=== PATIENT | male | born 1980 | race Caucasian/White ===

== ENCOUNTER → 2023-09-22 | Emergency (ER) | payer SELFPAY ==
[~2023-09-22] MED LIST: ASPIRIN 81 MG CHEWABLE TABLET ONE; METOPROLOL XL 50 MG TAB PO ONE; NA CHLORIDE 0.9% 1,000 ML ONE
[2023-09-22 14:47] LABS: Absolute Lymphocytes (CBC) 2.2 K/uL (0.7-4.9); Hematocrit 40.8 % (39.6-49.0); Lymphocytes % 30.4 % (15.3-44.8); MCV 91.7 fL (80-100); MPV 8.3 fL (7.6-11.3); Platelets 205 thou/uL (152-406); RBC Red Blood Cell Count 4.45 M/uL (4.33-5.43)
[2023-09-22 14:52] LABS: Protime INR 1.04
[2023-09-22 15:30] LABS: ALT/SGPT 40 U/L (16-61); AST/SGOT 12 U/L (15-37); Albumin 3.5 g/dL (3.4-5.0); Alkaline Phosphatase 78 U/L (45-117); BUN Blood Urea Nitrogen 12 mg/dL (7-18); Bicarbonate 27 mEq/L (21-32); Bilirubin Direct 0.2 mg/dL (0-0.2); Bilirubin Indirect, Calculated 0.4 mg/dL (0.2-0.8); Bilirubin Total 0.6 mg/dL (0.2-1.0); Glomerular Filtration Rate 82 ml/min (=/>90); Glucose Level 130 mg/dL (74-106); Lipase 29 U/L (13-75); Magnesium 2.1 mg/dL (1.6-2.4); Potassium 3.9 mEq/L (3.5-5.1); Protein, Total 7.8 g/dL (6.4-8.2); Sodium Level 134 mEq/L (136-145)
[2023-09-22 15:32] LABS: NT PRO-BNP < 5 pg/mL (<125); Troponin High Sensitivity < 3.0 pg/mL (<58.9)
[2023-09-22 15:51] LABS: Specific Gravity 1.013 (1.005-1.030); Urine Bacteria None Seen /HPF (<20); Urine Bilirubin NEGATIVE (Negative); Urine Blood Negative (Negative); Urine Clarity Turbid (Clear); Urine Color Light-Yellow (Yellow); Urine Glucose NEGATIVE (Negative); Urine Mucus Slight /HPF (None Seen); Urine Protein NEGATIVE (Negative); Urine RBC <5 /HPF (None Seen); Urine Urobilinogen Normal (Normal); Urine pH 6.5 (5.0-7.0)
--- NOTE | 2023-09-22 15:51 | RAD REPORT ---
EXAM DESCRIPTION: Kandace Single View09/22/2023 3:14 pm CLINICAL HISTORY: Chest pain COMPARISON: none FINDINGS: The lungs appear clear of acute infiltrate. The heart is normal size IMPRESSION: No acute abnormalities displayed
--- NOTE | 2023-09-22 17:13 | EDPHYS ---
Physician Documentation [facility] Name: Maximo Hernandez Age: 43 yrs Sex: Male : 1980 Arrival Date: 09/22/2023 Time: 14:26 Bed 19 Private MD: ED Physician Enoch Fernandez HPI: 09/22 14:57 This 43 yrs old Male presents to ER via EMS with complaints of HTN , LEFT ARM johnathan PAIN. 14:57 The patient or guardian reports chest pain that is located primarily in the left johnathan clavicle. Onset: just prior to arrival. The patient presents with a history of heart skipping beats. Context: The symptoms occur with light activity. Onset: The symptoms/episode began/occurred just prior to arrival. Modifying factors: The symptoms are aggravated by nothing. The symptoms are alleviated by nothing. The chest pain is described as aching. Historical: - Allergies: 14:32 No Known Allergies; rs5 - PMHx: 14:32 Hypercholesterolemia; Hypertensive disorder; rs5 - PSHx: 14:32 Cholecystectomy; rs5 - Immunization history:: Adult Immunizations up to date. - Social history:: Smoking status: Patient denies any tobacco usage or history of. - Family history:: not pertinent. ROS: 14:57 Constitutional: Negative for fever, chills, and weight loss, Eyes: Negative for injury, johnathan pain, redness, and discharge, ENT: Negative for injury, pain, and discharge, Neck: Negative for injury, pain, and swelling, Cardiovascular: Negative for chest pain, palpitations, and edema, Respiratory: Negative for shortness of breath, cough, wheezing, and pleuritic chest pain, Abdomen/GI: Negative for abdominal pain, nausea, vomiting, diarrhea, and constipation, Back: Negative for injury and pain, : Negative for injury, bleeding, discharge, and swelling, MS/Extremity: Negative for injury and deformity, Skin: Negative for injury, rash, and discoloration, Neuro: Negative for headache, weakness, numbness, tingling, and seizure, Psych: Negative for depression, anxiety, suicide ideation, homicidal ideation, and hallucinations, Allergy/Immunology: Negative for hives, rash, and allergies, Endocrine: Negative for neck swelling, polydipsia, polyuria, polyphagia, and marked weight changes, Hematologic/Lymphatic: Negative for swollen nodes, abnormal bleeding, and unusual bruising, Exam: 14:57 Constitutional: This is a well developed, well nourished patient who is awake, alert, johnathan and in no acute distress. Head/Face: Normocephalic, atraumatic. Eyes: Pupils equal round and reactive to light, extra-ocular motions intact. Lids and lashes normal. Conjunctiva and sclera are non-icteric and not injected. Cornea within normal limits. Periorbital areas with no swelling, redness, or edema. ENT: Nares patent. No nasal discharge, no septal abnormalities noted. Tympanic membranes are normal and external auditory canals are clear. Oropharynx with no redness, swelling, or masses, exudates, or evidence of obstruction, uvula midline. Mucous membranes moist. Neck: Trachea midline, no thyromegaly or masses palpated, and no cervical lymphadenopathy. Supple, full range of motion without nuchal rigidity, or vertebral point tenderness. No Meningismus. Chest/axilla: Normal chest wall appearance and motion. Nontender with no deformity. No lesions are appreciated. Cardiovascular: Regular rate and rhythm with a normal S1 and S2. No gallops, murmurs, or rubs. Normal PMI, no JVD. No pulse deficits. Respiratory: Lungs have equal breath sounds bilaterally, clear to auscultation and percussion. No rales, rhonchi or wheezes noted. No increased work of breathing, no retractions or nasal flaring. Abdomen/GI: Soft, non-tender, with normal bowel sounds. No distension or tympany. No guarding or rebound. No evidence of tenderness throughout. Back: No spinal tenderness. No costovertebral tenderness. Full range of motion. Male : Normal genitalia with no discharge or lesions. Skin: Warm, dry with normal turgor. Normal color with no rashes, no lesions, and no evidence of cellulitis. MS/ Extremity: Pulses equal, no cyanosis. Neurovascular intact. Full, normal range of motion. Neuro: Awake and alert, GCS 15, oriented to person, place, time, and situation. Cranial nerves II-XII grossly intact. Motor strength 5/5 in all extremities. Sensory grossly intact. Cerebellar exam normal. Normal gait. Psych: Awake, alert, with orientation to person, place and time. Behavior, mood, and affect are within normal limits. 14:57 ECG was reviewed by the Attending Physician. Vital Signs: 14:30 BP 168 / 95; Pulse 93; Resp 18; Pulse Ox 99% ; rs5 14:42 BP 156 / 96; Pulse 89; Resp 18; Temp 97.8; Pulse Ox 99% on R/A; mb9 15:44 BP 141 / 90; Pulse 87; Resp 18; Pulse Ox 95% on R/A; mb9 16:44 BP 123 / 74; Pulse 74; Resp 16; Pulse Ox 100% on R/A; mb9 MDM: 14:27 Patient medically screened. johnathan 14:28 Patient medically screened. johnathan 14:59 Differential diagnosis: abnormal EKG, acute myocardial infarction, acute pericarditis, johnathan anxiety, chest wall pain, Cholelithiasis costochondritis, arrythmia, dehydration, pancreatitis, peptic ulcer disease, pericarditis, pleurisy, pulmonary embolus. HEART Score: History: Slightly Suspicious (0), ECG: Non specific repolarization disturbance / LBTB / PM (1), Age: < or = 45 years (0), Risk Factors: > or = 3 Risk factors for atherosclerotic disease (2), [Hypercholesterolemia] [Hypertension] [+ Family HX] Troponin: < or = 1 x Normal Limit (0). The patient was given aspirin in the Emergency Department. RICHARDSON Risk Score: 1 - Three or more CAD risk factors, TOTAL SCORE = 1. Data reviewed: vital signs, nurses notes, EMS record, lab test result(s), EKG, radiologic studies, plain films. Consideration of Admission/Observation Escalation of care including admission/observation considered. I considered the following discharge prescriptions or medication management in the emergency department Medications were administered in the Emergency Department. See MAR. Test considered but Not performed: CT: NO CT CHEST. Historians other than the Patient: EMS: EMS WELL INFORMED. Care significantly affected by the following chronic conditions: Hypertension, Obesity. Counseling: I had a detailed discussion with the patient and/or guardian regarding the historical points, exam findings, and any diagnostic results supporting the discharge/admit diagnosis, the presence of at least one elevated blood pressure reading (>120/80) during this emergency department visit, lab results, radiology results, the need for outpatient follow up, for definitive care, a esthetician/spa coordinator, a family practitioner. 09/22 14:29 Order name: Basic Metabolic Panel; Complete Time: 17:12 johnathan 09/22 14:29 Order name: CBC with Diff; Complete Time: 17:12 09/22 14:29 Order name: LFT's; Complete Time: 17:12 09/22 14:29 Order name: Magnesium; Complete Time: 17:12 09/22 14:29 Order name: NT PRO-BNP; Complete Time: 17:12 09/22 14:29 Order name: PT-INR; Complete Time: 17:12 09/22 14:29 Order name: Troponin HS; Complete Time: 17:12 09/22 14:29 Order name: Lipase; Complete Time: 17:12 09/22 14:29 Order name: Urinalysis w/ reflexes; Complete Time: 17:12 09/22 14:29 Order name: XRAY Chest (1 view); Complete Time: 17:12 09/22 14:29 Order name: EKG; Complete Time: 14:30 09/22 14:29 Order name: Cardiac monitoring; Complete Time: 14:42 09/22 14:29 Order name: EKG - Nurse/Tech; Complete Time: 14:42 09/22 14:29 Order name: IV Saline Lock; Complete Time: 14:42 09/22 14:29 Order name: Labs collected and sent; Complete Time: 14:42 09/22 14:29 Order name: O2 Per Protocol; Complete Time: 14:42 09/22 14:29 Order name: O2 Sat Monitoring; Complete Time: 14:42 johnathan EC:57 Rate is 91 beats/min. Rhythm is regular. QRS [place] is Normal. AL interval is normal. QRS johnathan interval is normal. QT interval is normal. No Q waves. T waves are Normal. No ST changes noted. Clinical impression: Normal ECG and No evidence of ischemia. Interpreted by me. Reviewed by me. Administered Medications: 14:50 Drug: NS 0.9% IV 500 ml IV at bolus once Route: IV; Rate: bolus; Site: right mb9 antecubital; 16:45 Follow up: Response: No adverse reaction; IV Status: Completed infusion mb9 14:50 Drug: NS 0.9% IV 1000 ml IV at 125 ml/hr continuous Route: IV; Rate: 125 ml/hr; Site: mb9 right antecubital; 17:30 Follow up: Response: No adverse reaction; IV Status: Completed infusion mb9 14:50 Drug: Aspirin PO Chewable Tablet 324 mg PO once; 81 mg tablets x 4 Route: PO; mb9 16:44 Follow up: Response: No adverse reaction mb9 14:57 Drug: Metoprolol PO 50 mg PO once Route: PO; mb9 16:45 Follow up: Response: No adverse reaction mb9 Disposition Summary: 09/22/23 17:12 Discharge Ordered Notes: Location: Home johnathan Problem: new johnathan Symptoms: have improved johnathan Condition: Stable johnathan Diagnosis - Essential (primary) hypertension johnathan - Chest pain, unspecified johnathan Followup: johnathan - With: Private Physician - When: 2 - 3 days - Reason: Recheck today's complaints, Continuance of care, Re-evaluation by your physician Followup: johnathan - With: Magdy Rhodes MD - When: 2 - 3 days - Reason: Recheck today's complaints, Re-evaluation by your physician Discharge Instructions: - Discharge Summary Sheet johnathan - Nonspecific Chest Pain, Adult johnathan - Hypertension, Adult johnathan - Nonspecific Chest Pain, Adult, [id number] johnathan - Hypertension, Adult, [id number] johnathan - How to Take Your Blood Pressure, Gjjd-[id number] johnathan - Aspirin and Your Heart johnathan - Managing Your Hypertension [facility] Forms: - Medication Reconciliation Form [facility] - Thank You Letter [facility] - Antibiotic Education johnathan - Prescription Opioid Use johnathan - Patient Portal Instructions johnathan - Leadership Thank You Letter [facility] - Work release form mb9 Prescriptions: - Toprol XL 25 mg Oral Tablet - take 1 tablet ORAL route once daily; 20 tablet; Refills: 0, Product Selection johnathan Permitted Signatures: Dispatcher [employer] Enoch Jones MD MD cha Breneman, Liz Sheffield RN RN mb9 Fernando Nolasco RN RN rs5
--- NOTE | 2023-09-22 17:13 | ER ---
Nurse's Notes [facility] Name: Maximo Hernandez Age: 43 yrs Sex: Male : 1980 Arrival Date: 09/22/2023 Time: 14:26 Bed 19 Private MD: Diagnosis: Essential (primary) hypertension;Chest pain, unspecified Presentation: 09/22 14:30 Chief complaint: EMS states: Pt started experiencing chest pain while at work. rs5 Coronavirus screen: At this time, the client does not indicate any symptoms associated with coronavirus-19. Ebola Screen: No symptoms or risks identified at this time. Initial Sepsis Screen: Does the patient meet any 2 criteria? No. Patient's initial sepsis screen is negative. Does the patient have a suspected source of infection? No. Patient's initial sepsis screen is negative. Risk Assessment: Do you want to hurt yourself or someone else? Patient reports no desire to harm self or others. Onset of symptoms was September 22, 2022. Care prior to arrival: IV initiated. 20 GA, in the right antecubital area. 14:30 Method Of Arrival: EMS: [facility] rs5 14:30 Acuity: LYNSEY 3 rs5 Historical: - Allergies: 14:32 No Known Allergies; rs5 - PMHx: 14:32 Hypercholesterolemia; Hypertensive disorder; rs5 - PSHx: 14:32 Cholecystectomy; rs5 - Immunization history:: Adult Immunizations up to date. - Social history:: Smoking status: Patient denies any tobacco usage or history of. - Family history:: not pertinent. Screenin:[address] [facility] ED Fall Risk Assessment (Adult) History of falling in the last 3 months, rs5 including since admission No falls in past 3 months (0 pts) Confusion or Disorientation No (0 pts) Intoxicated or Sedated No (0 pts) Impaired Gait No (0 pts) Mobility Assist Device Used No (0 pt) Altered Elimination No (0 pt) Score/Fall Risk Level 0 - 2 = Low Risk Oriented to surroundings, Maintained a safe environment. Abuse screen: Denies threats or abuse. Nutritional screening: No deficits noted. Tuberculosis screening: No symptoms or risk factors identified. Assessment: 14:30 General: Appears in no apparent distress. Behavior is calm, cooperative. Pain: Denies rs5 pain. Neuro: Level of Consciousness is awake, alert, obeys commands, Oriented to person, place, situation. Cardiovascular: Heart tones S1 S2 present Patient's skin is warm and dry. Rhythm is regular. Respiratory: Airway is patent Respiratory effort is even, unlabored, Respiratory pattern is regular, symmetrical, Breath sounds are clear bilaterally. GI: Abdomen is round non-distended, Bowel sounds present X 4 quads. Abd is soft and non tender X 4 quads. : No signs and/or symptoms were reported regarding the genitourinary system. EENT: No signs and/or symptoms were reported regarding the EENT system. Derm: Skin is intact, Skin is pink, warm \T\ dry. 14:30 Musculoskeletal: Range of motion: intact in all extremities. rs5 15:33 Reassessment: No changes from previously documented assessment. Patient and/or family mb9 updated on plan of care and expected duration. Pain level reassessed. Patient is alert, oriented x 3, equal unlabored respirations, skin warm/dry/pink. 16:44 Reassessment: No changes from previously documented assessment. Patient and/or family mb9 updated on plan of care and expected duration. Pain level reassessed. Patient is alert, oriented x 3, equal unlabored respirations, skin warm/dry/pink. Vital Signs: 14:30 BP 168 / 95; Pulse 93; Resp 18; Pulse Ox 99% ; rs5 14:42 BP 156 / 96; Pulse 89; Resp 18; Temp 97.8; Pulse Ox 99% on R/A; mb9 15:44 BP 141 / 90; Pulse 87; Resp 18; Pulse Ox 95% on R/A; mb9 16:44 BP 123 / 74; Pulse 74; Resp 16; Pulse Ox 100% on R/A; mb9 ED Course: 14:27 Patient arrived in ED. johnathan 14:28 Enoch Fernandez MD is Attending Physician. johnathan 14:32 Triage completed. rs5 14:43 Arm band placed on right wrist. rs5 14:43 Patient has correct armband on for positive identification. Placed in gown. Bed in low rs5 position. Call light in reach. Side rails up X2. 14:49 Liz Azevedo, STEVIE is Primary Nurse. mb9 15:15 XRAY Chest (1 view) In Process Unspecified. EDMS 17:12 Magdy Rhodes MD is Referral Physician. [facility] 17:30 No provider procedures requiring assistance completed. IV discontinued, intact, mb9 bleeding controlled, No redness/swelling at site. Pressure dressing applied. Administered Medications: 14:50 Drug: NS 0.9% IV 500 ml IV at bolus once Route: IV; Rate: bolus; Site: right mb9 antecubital; 16:45 Follow up: Response: No adverse reaction; IV Status: Completed infusion mb9 14:50 Drug: NS 0.9% IV 1000 ml IV at 125 ml/hr continuous Route: IV; Rate: 125 ml/hr; Site: mb9 right antecubital; 17:30 Follow up: Response: No adverse reaction; IV Status: Completed infusion mb9 14:50 Drug: Aspirin PO Chewable Tablet 324 mg PO once; 81 mg tablets x 4 Route: PO; mb9 16:44 Follow up: Response: No adverse reaction mb9 14:57 Drug: Metoprolol PO 50 mg PO once Route: PO; mb9 16:45 Follow up: Response: No adverse reaction mb9 Medication: 14:43 VIS not applicable for this client. rs5 Outcome: 17:12 Discharge ordered by [facility] 17:30 Discharged to home ambulatory, with family, mb9 17:30 Condition: stable 17:30 Discharge instructions given to patient, family, Instructed on discharge instructions, follow up and referral plans. Demonstrated understanding of instructions, follow-up care, medications, Prescriptions given X 1, 17:30 Patient left the ED. mb9 Signatures: Dispatcher [employer] EDEnoch Abel MD MD cha Breneman, Mary Beth RN RN mb9 Fernando Nolasco RN RN rs5 Corrections: (The following items were deleted from the chart) 14:57 14:42 BP 156 / 96; Pulse 89bpm; Resp 18bpm; Pulse Ox 99% RA; rs5 mb9
[2023-09-22 19:54] VITALS: TEMP 97.8
[2023-09-22 20:09] VITALS: BP 123/74; O2SAT 100
--- NOTE | 2023-09-23 13:24 | EKG ---
Test Date: 2023-09-22 Test Time: 14:37:04 Nurse Staff Industrial: [employer] MEASUREMENT RESULTS: Intervals: Rate: 91 [place]: 160 QRSD: 82 QT: 344 QTc: 423 [place]: P: 68 NJ: 160 QRS: 26 T: 64 INTERPRETIVE STATEMENTS: Normal sinus rhythm Normal ECG No previous ECG available for comparison Electronically Signed On 09-23-23 13:22:07 BRAZE OPERATOR by Prasanna Perez
== END ==
LOC: ER 14:26
DX: I10 Essential (primary) hypertension (principal); R07.9 Chest pain, unspecified
CPT/HCPCS: 36415; 71045; 80048; 80076; 81001; 83690; 83735; 83880; 84484; 85025; 85610; 93005; J7030